=== PATIENT | male | born 1960 | race Caucasian/White ===

== ENCOUNTER → 2016-02-26 | Day surgery (SDC) | payer OTHER ==
[~2016-02-26] MED LIST: DEXT30CA6 PO; LIDOCAINE 1%/EPI 1:100,000 20 ML VIAL. ONE; LIDOCAINE 2%/EPI 1:100,000 20 ML VIAL. IJ ONE
[2016-02-26 07:30] VITALS: BP 127/87
--- NOTE | 2016-02-26 10:43 | PDOC ---
BRIEF OPERATIVE NOTE Date: Feb 26, 2016 Pre-Op Diagnosis Back mass Post-Op Diagnosis Same Procedure Performed Excision of mass Surgeon Alireza Anesthesia Type: Local Blood Loss 5ml Specimens Obtained back mass Findings as above Complications None ANDREA FRANKLIN MD Feb 26, 2016 10:43
--- NOTE | 2016-02-26 10:44 | DISCH ---
DISCHARGE INSTRUCTIONS Condition on Discharge Condition on Discharge: Stable Activity After Discharge Activity Instructions for Disc: Resume previous activity Diet after Discharge Diet after Discharge: Regular Wound Incision Care Other wound/incision instructi: May shower in 24 hours Contacting the after DC Call your doctor for: If your condition worsens Follow-Up Follow up with: Dr Franklin in 2 weeks ANDREA FRANKLIN MD Feb 26, 2016 10:43
--- NOTE | 2016-02-29 13:49 | PATHOLOGY ---
PATHOLOGY REPORT * * * * * * * * FINAL DIAGNOSIS: Skin and subcutaneous tissue, back cyst: - Follicular cyst, infundibular type, ruptured, with acute and chronic inflammation and focal foreign body giant cell reaction. COMMENT: There is no evidence of malignancy. (JPM:all; d/t: 02/29/2016) REPORT ELECTRONICALLY SIGNED BY: Pedro Pablo Morton M.D. DATE/TIME: 02/29/2016 13:48 * * * * * * * * GROSS PATHOLOGY: The specimen is received in formalin, labeled "Hari White and back cyst." Received is a 3.5 x 0.7 x 1.7 cm unoriented skin ellipse. The epidermal surface displays a 0.2 x 0.2 cm ray, circular, and open defect, which extends inferiorly into the subcutaneous tissue. The resection margin is inked black and the specimen is serially sectioned to reveal a white-ray to yellow-ray and lobulated surface. A cystic structure is not grossly identified. Manager Printing sections are submitted cassette A1. (TTL; 02/26/2016) INITIAL CPT CODE(S): A; 34602 Professional services performed [place] [address] Technical services performed by [facility] at [address] [place] [address], [facility] [address] [address]. SPECIMEN(S) RECEIVED: A.Back cyst CLINICAL HISTORY: Back cyst PATIENT: HARI WHITE /AGE: 708/09/1960 (Age: 55) PATIENT #: [id number] ALT CASE #: SPECIMEN COLLECTION DATE: 02/26/2016 SPECIMEN RECEIVED DATE: 02/26/2016 [facility] - [id number] [place] [address] - PHONE: [phone] * * * END OF REPORT * * *
--- NOTE | 2016-03-03 17:11 | OP ---
DATE OF SURGERY: 02/26/2016 PREOPERATIVE DIAGNOSIS: Sebaceous cyst of the back. POSTOPERATIVE DIAGNOSIS: Sebaceous cyst of the back. PROCEDURE: Excision of sebaceous cyst. SURGEON: Jermain Franklin M.D. INDICATIONS: The patient is a 55-year-old gentleman who has complained of a chronically draining area on his back with a mass, appears to be an infected sebaceous cyst. He has been on antibiotics for over weeks and comes in for excision of sebaceous cyst. Procedure of excision of sebaceous cyst was explained to the patient in detail. Risks, benefits were also discussed including bleeding and/or infection. Alternatives of this procedure were also discussed with the patient who seemed to understand and gave verbal and written consent to have the procedure performed. DESCRIPTION OF PROCEDURE: The patient was taken to the minor's room and placed in a sitting position lying over table supporting his upper body with table and pillow. The area on his back was prepped and draped in usual sterile fashion using ChloraPrep. An area around the mass was injected with 0.25% Marcaine with epinephrine. An elliptical incision was made. This was carried down through subcutaneous tissues, excising the sebaceous cyst completely. Wound was then closed in a single layer of 3-0 single interrupted nylon sutures. The wound was then dressed with 4 x 4's, Medipore tape. The patient tolerated the procedure well, was discharged to home in stable condition. All sponge, instrument counts listed as correct. Estimated blood loss 20 mL. JERMAIN FRANKLIN MD DR: CANDICE/thaddeus JOB#: [id number] / [id number]
== END | disposition home or self-care (01) ==
LOC: SURG 07:08
PROVIDERS: ATTEND Surgery
DX: L72.3 Sebaceous cyst (principal); Z90.49 Acquired absence of other specified parts of digestive tract
CPT/HCPCS: 11404; 88304; J3490